=== PATIENT | female | born 1995 | race African-American/Black ===

== ENCOUNTER 2021-06-19 13:32 | Inpatient (IN) ==
[2021-06-19] MEDS ORDERED: miSOPROStoL 200 MCG TABLET ONE (13:56)
[2021-06-19] MEDS ORDERED: FAMOTIDINE 20 MG/2 ML VIAL IV ONE ×2 (13:57→13:59)
[2021-06-19] MEDS ORDERED: METHYLERGONOVINE 0.2 MG/1 ML AMP ONE (13:57)
[2021-06-19] MEDS ORDERED: TRANEXAMIC ACID 1,000 MG/10 ML VIAL ONE (13:57)
[2021-06-19] MEDS ORDERED: OXYTOCIN/LR 20 UNIT/1,000 ML BAG IV ONE ×3 (13:57→15:20)
[2021-06-19] MEDS ORDERED: CARBOPROST TROMETHAMINE 250 MCG/ML AMP IM ONE (13:57)
[2021-06-19] MEDS ORDERED: CLINDAMYCIN INJ 900 MG/50 ML PREMIX IV ONE (13:59)
[2021-06-19] MEDS ORDERED: CITRIC ACID/SODIUM CITRATE 30 ML UDCUP PO ONE (13:59)
[2021-06-19] MEDS ORDERED: LACTATED RINGERS 1,000 ML IV SCH (14:00)
[2021-06-19 14:07] LABS: Basophils % 0.1 % (0.0-0.8); Eosinophils % 0.2 % (0.00-10.9); Hematocrit 42.6 VOL% (35.7-47.0); Hemoglobin 13.2 GM/DL (12.0-16.0); Immature Granulocytes % 0.8 %; Immature Granulocytes Absolute 0.14 #; Lymphocytes # 1.5 10*3/uL (1.4-4.0); Mean Corpuscular Volume 87.3 FL (87-102); Mean Platelet Volume 10.9 FL (9.6-12.0); NRBC # 0.03 10*3/uL; Neutrophils % 83.9 % (38.7-73.9); Platelet Count 154 T/CUMM (130-400); Red Blood Count 4.88 MC/CUMM (3.8-5.5); Red Cell Distribution Width 15.9 % (9.3-17.3)
[2021-06-19] MEDS ORDERED: fentaNYL 100 MCG/2 ML VIAL ONE ×2 (14:07→14:17)
[2021-06-19] MEDS ORDERED: MIDAZOLAM 2 MG/2 ML VIAL ONE (14:07)
[2021-06-19] MEDS ORDERED: OXYTOCIN 10 UNIT/ML VIAL ONE ×3 (14:11→16:19)
[2021-06-19 14:16] LABS: Cord Arterial Blood HCO3 12.1 MMOL/L
[2021-06-19 14:18] LABS: Cord Venous Blood HCO3 7.4 MMOL/L
[2021-06-19] MEDS ORDERED: ACETAMINOPHEN INJ 1,000 MG/100 ML VIAL IV ONE (14:40)
[2021-06-19] MEDS ORDERED: propofoL 200 MG/20 ML VIAL IV ONE (14:40)
[2021-06-19] MEDS ORDERED: SEVOFLURANE 1 UNIT/15 MINUTE INH ONE (14:41)
[2021-06-19] MEDS ORDERED: SUCCINYLCHOLINE 200 MG/10 ML VIAL ONE (14:41)
[2021-06-19] MEDS ORDERED: RHO(D) IMMUNE GLOBULIN 300 MCG SYRINGE IM ONE (15:20)
[2021-06-19] MEDS ORDERED: BISACODYL 10 MG SUPP RECTAL PRN (15:20)
[2021-06-19] MEDS ORDERED: MEASLES/MUMPS/RUBELLA VACCINE 0.5 ML VIAL SUBCUT ONE (15:20)
[2021-06-19] MEDS ORDERED: oxyCODONE/ACETAMINOPHEN 5-325 MG TABLET PO PRN (15:20)
[2021-06-19] MEDS ORDERED: HYDROCORTISONE 2.5% RECTAL CREAM 30 GM TUBE TOP PRN (15:20)
[2021-06-19] MEDS ORDERED: ACETAMINOPHEN 325 MG TABLET PO PRN (15:20)
[2021-06-19] MEDS ORDERED: BENZOCAINE 20%/MENTHOL 0.5% SPRAY 56 GM CAN TOP PRN (15:20)
[2021-06-19] MEDS ORDERED: LANOLIN 50% CREAM 0.3 OZ TUBE TOP PRN (15:20)
[2021-06-19] MEDS ORDERED: DIPH/TET/ACEL PERT BOOSTER VACCINE 0.5 ML VIAL IM ONE (15:20)
[2021-06-19] MEDS ORDERED: ONDANSETRON 4 MG/2 ML VIAL IV PRN (15:20)
[2021-06-19] MEDS ORDERED: WITCH HAZEL PADS 100/JAR TOP PRN (15:20)
[2021-06-19 15:30] LABS: Bilirubin,Urine Negative (Negative); Blood, Urine Moderate mg/dL (Negative); Glucose,Urine (UA) Negative (Negative); Ketones,Urine 5 mg/dL (Negative); Mucus,Urine Many /LPF (Occasional); Nitrite,Urine Negative (Negative); Protein,Urine 100 MG/DL; RBC,Urine 143 /HPF (0-4); Squamous Epithelial Cell,Urine Occasional /HPF (0-10); Urine Appearance CLOUDY (Clear); Urine Color Amber (Yellow); Urine Specific Gravity 1.029 (1.001-1.035); Urine Urobilinogen < 2.0 EU/DL (0.2-1.0)
[2021-06-19 15:33] LABS: Barbiturates Screen,Urine Negative (Negative); Benzodiazepines Screen,Urine Negative (Negative); Cannabinoid Screen,Urine Negative (Negative); Opiate Screen,Urine Negative (Negative); Phencyclidine Screen,Urine Negative (Negative)
[2021-06-19] MEDS ORDERED: HYDROmorphone 2 MG/1 ML VIAL IV PRN (16:10)
[2021-06-19] MEDS ORDERED: miSOPROStoL 200 MCG TABLET VAG ONE (16:21)
[2021-06-19] MEDS ORDERED: OXYTOCIN 10 UNIT/ML VIAL IV SCH (16:30)
[2021-06-19] MEDS: oxyCODONE/ACETAMINOPHEN 5-325 MG TABLET PO PRN (19:14)
[2021-06-19] MEDS: IBUPROFEN 800 MG TABLET PO PRN (19:15)
[2021-06-19] MEDS: ACETAMINOPHEN 500 MG TABLET PO SCH (21:39)
[2021-06-19] MEDS: DOCUSATE SODIUM 100 MG CAPSULE PO SCH (21:47)
[2021-06-19] MEDS: CLINDAMYCIN INJ 900 MG/50 ML PREMIX IV SCH (23:46)
[2021-06-20] MEDS: oxyCODONE/ACETAMINOPHEN 5-325 MG TABLET PO PRN ×3 (04:38→20:27)
[2021-06-20 05:43] LABS: Basophils % 0.2 % (0.0-0.8); Eosinophils % 0.2 % (0.00-10.9); Hematocrit 23.4 VOL% (35.7-47.0); Immature Granulocytes % 0.6 %; Lymphocytes # 2.4 10*3/uL (1.4-4.0); Lymphocytes % 13.7 % (21.3-54.2); Mean Corpuscular HGB Conc 31.6 GM/DL (32-36); Mean Corpuscular Volume 87.3 FL (87-102); Mean Platelet Volume 11.4 FL (9.6-12.0); Monocytes % 6.9 % (1.7-12.7); Neutrophils % 78.4 % (38.7-73.9); Red Cell Distribution Width 15.5 % (9.3-17.3); White Blood Count 17.5 T/CUMM (4-12)
[2021-06-20 05:51] LABS: Hemoglobin 7.4 GM/DL (12.0-16.0); Platelet Count 121 T/CUMM (130-400); Red Blood Count 2.68 MC/CUMM (3.8-5.5)
[2021-06-20] MEDS: ACETAMINOPHEN 500 MG TABLET PO SCH (06:28)
[2021-06-20] MEDS: CLINDAMYCIN INJ 900 MG/50 ML PREMIX IV SCH (08:30)
[2021-06-20] MEDS: FERROUS SULFATE 325 MG TABLET PO SCH ×3 (10:23→20:26)
[2021-06-20] MEDS: DOCUSATE SODIUM 100 MG CAPSULE PO SCH ×2 (10:23→20:26)
[2021-06-20] MEDS: IBUPROFEN 800 MG TABLET PO PRN ×2 (12:17→23:44)
[2021-06-21] MEDS ORDERED: SIMETHICONE CHEW 125 MG TABLET PO PRN (08:16)
[2021-06-21] MEDS: FERROUS SULFATE 325 MG TABLET PO SCH (08:50)
[2021-06-21] MEDS: IBUPROFEN 800 MG TABLET PO PRN (08:50)
[2021-06-21] MEDS: DOCUSATE SODIUM 100 MG CAPSULE PO SCH (08:50)
[2021-06-21] MEDS: oxyCODONE/ACETAMINOPHEN 5-325 MG TABLET PO PRN (08:51)
[2021-06-21 11:19] VITALS: BP 138/83
== END 2021-06-21 11:05 | disposition home or self-care (01) | DRG 540 ==
LOC: N.LDOUT 13:32 → N.LD 13:34 → N.OB 06-20 08:05
PROVIDERS: ADMIT Specialist; ATTEND Specialist
PROC: LDCSECT (ICD-10-PCS; 2021-06-19 14:00)